=== PATIENT | female | born 1975 | race Caucasian/White ===

== ENCOUNTER 2020-03-15 17:40 | Inpatient (IN) | payer BC, MEDICAID ==
[~2020-03-15] VITALS: Ht 180.3 cm; Wt 118.2 kg
[~2020-03-15 17:40] MED LIST: AMOX-580 PO; BACL10TA PO; HYDR-4383 PO; IBUP-1986 PO; LORA1TAB PO; TRAM50TA2 PO
[2020-03-15] MEDS ORDERED: ondansetron/PF 4mg/2ml inj IV ONE (17:55)
[2020-03-15] MEDS ORDERED: normal saline 1000ML IV soln IVB ONE (17:55)
[2020-03-15] MEDS ORDERED: ketorolac trometh. 30mg/ml inj. IV ONE (18:15)
[2020-03-15 18:39] LABS: BASOPHILS # (AUTO) 0.1 X10'3 (0-0.2); EOSINOPHILS % (AUTO) 0.3 % (0-6); HEMOGLOBIN 14.5 g/dl (12.0-16.0); MEAN CORPUSCULAR HEMOGLOBIN 33.3 PG (27.0-31.0); MONOCYTES # (AUTO) 1.6 X10'3 (0-0.9)
[2020-03-15 18:41] LABS: BASOPHILS % (AUTO) 0.6 % (0-1); HEMATOCRIT 42.6 % (35.0-45.0); LYMPHOCYTES # (AUTO) 2.1 X10'3 (1.1-4.8); LYMPHOCYTES % (AUTO) 12.3 % (21-51); MEAN CORPUSCULAR HGB CONC 34.1 g/dL (33.0-36.5); MEAN CORPUSCULAR VOLUME 97.7 FL (78-98); MEAN PLATELET VOLUME 9.4 FL (7.4-10.4); NEUTROPHILS # (AUTO) 13.5 X10'3 (1.8-7.7); NEUTROPHILS % (AUTO) 77.8 % (42-75); PLATELET COUNT 186 X10'3 (140-440); RED BLOOD COUNT 4.36 X10'6 (4.20-5.60); RED CELL DISTRIBUTION WIDTH 13.5 % (11.5-14.5); WHITE BLOOD COUNT 17.4 X10'3 (4.5-11.0)
[2020-03-15] MEDS: morphine 4 MG/ML inj SYRINge IV PRN (18:47)
[2020-03-15 18:51] LABS: ALANINE AMINOTRANSFERASE 57 U/L (12-78); ALBUMIN 3.9 G/DL (3.4-5.0); ALBUMIN/GLOBULIN RATIO 1.1 (1.1-1.5); ALKALINE PHOSPHATASE 88 IU/L (46-116); ANION GAP 11 (8-16); ASPARTATE AMINO TRANSFERASE 27 U/L (10-37); BILIRUBIN,TOTAL 1.1 MG/DL (0.1-1.0); BLOOD UREA NITROGEN 9 MG/DL (7-18); CALCIUM 8.8 MG/DL (8.5-10.1); CHLORIDE 108 MMOL/L (99-107); GLUCOSE 94 MG/DL (70-104); POTASSIUM 3.4 MMOL/L (3.5-5.1); SODIUM 143 MMOL/L (135-145); TOTAL PROTEIN 7.4 G/DL (6.4-8.2); eGFR 68 ML/MIN
[2020-03-15] MEDS ORDERED: ALPR1TAB7 PO (19:26)
[2020-03-15] MEDS ORDERED: BUSP10TA3 PO (19:26)
[2020-03-15] MEDS ORDERED: ALPRAZolam 0.5mg tablet PO ONE (19:35)
--- NOTE | 2020-03-15 19:42 | NUR ---
PT DESATTING TO 86% WHEN SLEEPING. PT STATES SHE WEARS A CPAP AT HOME AT NIGHT. PT PUT ON 2 L NC. 02 INCREASED TO 96%
[2020-03-15] MEDS ORDERED: ringers solution, lacted 1,000 ML IV SCH ×2 (20:46→23:57)
[2020-03-15] MEDS ORDERED: fentaNYL/PF 50MCG/1 ML 2ML syringe IV PRN ×2 (20:50)
[2020-03-15] MEDS ORDERED: hydrALAZINE 20mg/ml inj. IV PRN (20:50)
[2020-03-15] MEDS ORDERED: ondansetron/PF 4mg/2ml inj IV PRN ×2 (20:50→21:30)
[2020-03-15] MEDS ORDERED: morphine 2 MG/ML inj. syringe IV PRN (20:50)
[2020-03-15] MEDS ORDERED: labetalol 20mg/4ml (5mg/ml) syringe IV PRN (20:50)
[2020-03-15] MEDS ORDERED: morphine 4 MG/ML inj SYRINge IV PRN (20:50)
[2020-03-15] MEDS: normal saline 1000ml 1,000 ML IV SCH (21:10)
[2020-03-15] MEDS ORDERED: fentaNYL/PF 50MCG/1 ML 2ML syringe ONE ×2 (21:25→23:48)
[2020-03-15] MEDS ORDERED: midazolam 2 mg/2 ml injection ONE (21:25)
[2020-03-15] MEDS ORDERED: BUPIVAcaine/PF 2.5 mg/ml (0.25%) 30ml vial ONE (21:25)
[2020-03-15] MEDS ORDERED: dexamethasone sod phosphate 4mg/ml inj. ONE (21:26)
[2020-03-15] MEDS ORDERED: LIDOcaine 2% (20mg/ml) 5ml vial ONE (21:26)
[2020-03-15] MEDS ORDERED: propofol inj 20 ML IV ONE ×2 (21:26→22:12)
[2020-03-15] MEDS ORDERED: neostigmine methylsulfate 1 MG/ML 10ml vial ONE (21:26)
[2020-03-15] MEDS ORDERED: rocuronium 10mg/ml inj IV ONE ×2 (21:26→22:26)
[2020-03-15] MEDS ORDERED: ondansetron/PF 4mg/2ml inj ONE (21:26)
[2020-03-15] MEDS ORDERED: glycopyrrolate 0.2mg/ml inj ONE (21:26)
[2020-03-15] MEDS ORDERED: magnesium 4gm in 100ml NS 100 ML IV PRN (21:30)
[2020-03-15] MEDS ORDERED: HYDROmorphone inj. 0.5 MG/0.5 ML DISP.SYRIN IV PRN (21:30)
[2020-03-15] MEDS ORDERED: ipratropium/albuterol 3ml nebule NEB PRN (21:30)
[2020-03-15] MEDS ORDERED: magnesium Cl slow-release 64mg tablet PO PRN (21:30)
[2020-03-15] MEDS ORDERED: HYDROmorphone 1 mg/ml syringe IV PRN (21:30)
[2020-03-15] MEDS ORDERED: potassium CL 10mEq/100ml bag 100 ML IV PRN ×2 (21:30)
[2020-03-15] MEDS ORDERED: acetaminophen 325mg tablet PO PRN (21:30)
[2020-03-15] MEDS ORDERED: potassium Cl 20 mEq SR tablet PO PRN ×2 (21:30)
[2020-03-15] MEDS ORDERED: magnesium 2GM in 50ml NS 50 ML IV PRN (21:30)
--- NOTE | 2020-03-15 21:31 | NUR ---
Pt picked up by OR tech and transported to OR. Report was given to OR nurse over the phone.
[2020-03-15] MEDS ORDERED: sevoflurane 250ml liquid IH ONE (21:41)
[2020-03-15] MEDS ORDERED: ceFOXitin 2 GM ADDVANTGE BAG 100 ML IV ONE (21:48)
[2020-03-15] MEDS ORDERED: clindamycin phosphate 150mg/ml inj. ONE (22:39)
[2020-03-15] MEDS ORDERED: gentamicin 40 MG/1 ML inj ONE (22:39)
[2020-03-15] MEDS: potassium CL 20mEq in D5-1/2NS 1,000 ML IV SCH (23:41)
[2020-03-15 23:45] VITALS: BP 166/100
--- NOTE | 2020-03-15 23:45 | NUR ---
Received from OR via BED , accompanied by Anesthesiologist DR BILLS and report given by Anesthesiolgist. PATIENT WAKING UP, C/O PAIN SEE EMAR, V/S WNL, NEUROVASCULAR CHECKS INTACT, 20G PIV RUE AND 22G LUE, SCD ON, 2 DRESSING TO ABDOMEN CDI WITH JENNIFER APPROX 30CC IN DRAIN. F/C DRAINING CLEAR YELLOW URINE.
[2020-03-15 23:46] VITALS: BP 107/65
[2020-03-15 23:55] VITALS: BP 126/69
[2020-03-15] MEDS: ketorolac trometh. 30mg/ml inj. IV PRN (23:58)
[2020-03-16] VITALS (19 sets, daily range): BP systolic 92–144; BP diastolic 48–90
[2020-03-16] MEDS ORDERED: morphine 2 MG/ML inj. syringe IV PRN
[2020-03-16] MEDS ORDERED: piperacillin/tazo 4.5gm/100ml 100 ML IV SCH
[2020-03-16] MEDS ORDERED: ondansetron/PF 4mg/2ml inj IV PRN
[2020-03-16] MEDS ORDERED: hydrALAZINE 20mg/ml inj. IV PRN
[2020-03-16] MEDS ORDERED: fentaNYL/PF 50MCG/1 ML 2ML syringe IV PRN ×2
[2020-03-16] MEDS ORDERED: morphine 4 MG/ML inj SYRINge IV PRN
[2020-03-16] MEDS ORDERED: labetalol 20mg/4ml (5mg/ml) syringe IV PRN
[2020-03-16] MEDS: morphine 4 MG/ML inj SYRINge IV PRN (00:16)
[2020-03-16] MEDS ORDERED: HYDROmorphone/NS 1 mg/ml CADD 50 ML IV SCH (00:20)
[2020-03-16] MEDS ORDERED: naloxone 0.4 mg/ml inj IV PRN (00:25)
[2020-03-16] MEDS ORDERED: CADD PCA waste documentation MC SCH (00:25)
--- NOTE | 2020-03-16 00:33 | NUR ---
PATIENT VERY PAINFUL, SUPERVISOR OF RESEARCH ORDERED PER DR CASTELLANO. AWAITING PHARMACY TO DELIVER THIS. SEE EMAR FOR MEDS GIVEN.
[2020-03-16] MEDS ORDERED: HYDROmorphone 1 mg/ml syringe ONE (00:38)
--- NOTE | 2020-03-16 00:55 | NUR ---
PATIENT OX4, C/O PAIN BUT STATES IT IS GETTING BETTER, DIRECTOR TELEVISION NEWS BOLUS GIVEN, V/S WNL, NEUROVASCULAR CHECKS INTACT, 20G PIV RUE AND 22G LUE, SCD ON, 2 DRESSING TO ABDOMEN CDI WITH JENNIFER APPROX 30CC IN DRAIN. F/C DRAINING CLEAR YELLOW URINE. PATIENT TAKEN TO 341A WITH ALL BELONGINGS AND HOOKED UP TO MONITORS IN ROOM AND REPORT GIVEN TO RN WHO HAS TAKEN OVER PATIENT CARE.
[2020-03-16] MEDS: HYDROmorphone/NS 1 mg/ml CADD 50 ML IV SCH ×12 (00:59→23:00)
--- NOTE | 2020-03-16 01:00 | NUR ---
Pt arrived to floor with fruit harvester and RT. RN states fentanyl was given and believed pt was either having reaction from medication or has high anxiety. Pt appears to be in intense pain. CADD pump was set up with fruit harvester. VSS, pain 08/08. Emptied 50 from JENNIFER, two dressings to abd CDI. Skin check completed. Pt on Bi-pap; deferred nasal swab until breathing rate controlled. 2 RN skin check preformed.
--- NOTE | 2020-03-16 01:58 | NUR ---
1 set of cultures and lactisepsis sent to lab.
--- NOTE | 2020-03-16 02:45 | NUR ---
Patient appears to be resting comfortably. RR does increase substantially when woke. When resting with eyes closed, respirations normalize to 18. Patient is using CADD pump effectively. Emptied another 70mL from JENNIFER. Dressings remain CDI.
[2020-03-16] MEDS: normal saline 1000ml 1,000 ML IV SCH ×4 (03:50→20:30)
[2020-03-16 06:25] LABS: BASOPHILS % (AUTO) 0.3 % (0-1); EOSINOPHILS % (AUTO) 0 % (0-6); HEMATOCRIT 39.1 % (35.0-45.0); HEMOGLOBIN 13.3 g/dl (12.0-16.0); LYMPHOCYTES # (AUTO) 0.8 X10'3 (1.1-4.8); LYMPHOCYTES % (AUTO) 4.2 % (21-51); MEAN CORPUSCULAR HEMOGLOBIN 33.2 PG (27.0-31.0); MEAN CORPUSCULAR HGB CONC 33.9 g/dL (33.0-36.5); MEAN PLATELET VOLUME 9.2 FL (7.4-10.4); MONOCYTES # (AUTO) 1.8 X10'3 (0-0.9); MONOCYTES % (AUTO) 9.7 % (2-12); NEUTROPHILS # (AUTO) 16.2 X10'3 (1.8-7.7); NEUTROPHILS % (AUTO) 85.8 % (42-75); PLATELET COUNT 180 X10'3 (140-440); RED BLOOD COUNT 3.99 X10'6 (4.20-5.60); RED CELL DISTRIBUTION WIDTH 13.8 % (11.5-14.5); WHITE BLOOD COUNT 18.9 X10'3 (4.5-11.0)
--- NOTE | 2020-03-16 06:27 | NUR ---
Problems reprioritized. Patient report given, questions answered & plan of care reviewed with ARNOL Rae.
--- NOTE | 2020-03-16 06:35 | NUR ---
Patient in room [facility]. I have received report from Marie Connolly RN and had the opportunity to ask questions and assume patient care.
[2020-03-16 06:41] LABS: ALANINE AMINOTRANSFERASE 57 U/L (12-78); ALBUMIN 3.2 G/DL (3.4-5.0); ALKALINE PHOSPHATASE 72 IU/L (46-116); ANION GAP 8 (8-16); ASPARTATE AMINO TRANSFERASE 28 U/L (10-37); BILIRUBIN,TOTAL 1.5 MG/DL (0.1-1.0); BLOOD UREA NITROGEN 8 MG/DL (7-18); BUN/CREATININE RATIO 8.2 (6.6-38.0); CALCIUM 8.2 MG/DL (8.5-10.1); CHLORIDE 108 MMOL/L (99-107); CREATININE 0.98 MG/DL (0.40-0.90); GLUCOSE 145 MG/DL (70-104); MAGNESIUM 1.8 MG/DL (1.5-2.4); POTASSIUM 3.9 MMOL/L (3.5-5.1); SODIUM 142 MMOL/L (135-145); TOTAL CARBON DIOXIDE 25.9 MMOL/L (24-32); TOTAL PROTEIN 6.5 G/DL (6.4-8.2); eGFR 61 ML/MIN
[2020-03-16] MEDS: piperacillin/tazo 3.375gm/50ml 50 ML IV SCH ×2 (07:17→16:24)
[2020-03-16] MEDS: busPIRone 5mg tablet PO SCH ×2 (07:17→20:51)
[2020-03-16] MEDS: enoxaparin 40mg/0.4ml syringe SQ SCH (07:17)
[2020-03-16] MEDS: sennosides/docusate sodium tablet PO SCH ×2 (07:18→20:52)
[2020-03-16] MEDS: docusate sod 100mg capsule PO SCH ×2 (07:18→20:51)
[2020-03-16] MEDS: ALPRAZolam 0.5mg tablet PO SCH ×2 (07:18→20:53)
[2020-03-16] MEDS: baclofen 10mg tablet PO PRN (07:25)
[2020-03-16] MEDS: potassium CL 20mEq in D5-1/2NS 1,000 ML IV SCH (07:51)
[2020-03-16] MEDS: K and/or MAG REPLACEMENT MC SCH ×2 (08:00→20:00)
[2020-03-16] MEDS: ondansetron/PF 4mg/2ml inj IV PRN (09:00)
[2020-03-16] MEDS: ketorolac trometh. 30mg/ml inj. IV PRN ×2 (09:01→17:25)
[2020-03-16 10:43] LABS: CLARITY,URINE CLOUDY (Clear); GLUCOSE, URINE NEGATIVE (Neg); KETONES,URINE NEGATIVE (Neg); LEUKOCYTE ESTERASE ,URINE NEGATIVE (Neg); OCCULT BLOOD,URINE MODERATE (Neg); PROTEIN,URINE 30 mg/dl (Neg)
[2020-03-16 10:49] LABS: UA COLLECTION TYPE OTHER
[2020-03-16 10:51] LABS: COLOR,URINE DARK YELLOW (Yellow); NITRITES, URINE NEGATIVE (Neg)
[2020-03-16 10:54] LABS: AMORPHOUS URATES 4+; BACTERIA,URINE FEW /HPF (Neg); RBC,URINE 0-2 /HPF (0-2); SQUAMOUS EPITHELIAL CELL,UR MODERATE /LPF (FEW); WBC,URINE 0-4 /HPF (0-4)
[2020-03-16 10:55] LABS: MUCUS STRANDS FEW /LPF (Neg); RENAL CELLS, URINE FEW /HPF; TRANSITIONAL EPI CELLS,URINE MODERATE /HPF
[2020-03-16 10:56] LABS: HYALINE CASTS 0-3 /LPF (NEGATIVE)
--- NOTE | 2020-03-16 16:14 | NUR ---
patient tearful from time to time, stated she is very emotional and anxious. medicated this am with xanax as scheduled. Encouraged to use Dilaudid cadd with effect. Wound site reinforced small amount of drainage distal portion of midline incision. JENNIFER drained 140mls serosang drainage. patient able to ambulate with PT 80ft. Toradol administered for abdominal pain and tenderness with effect. Will continue to monitor.
--- NOTE | 2020-03-16 18:22 | NUR ---
Problems reprioritized. Patient report given, questions answered & plan of care reviewed with Brandin AMBROSE.
--- NOTE | 2020-03-16 18:30 | NUR ---
Patient in room [facility]. I have received report from KELLY AMBROSE and had the opportunity to ask questions and assume patient care.
[2020-03-16] MEDS: lactobacillus rhamnosus 10,000 MMU CELLS/CAPSULE PO SCH (20:51)
[2020-03-17] VITALS: BP 98/51
[2020-03-17] MEDS: piperacillin/tazo 3.375gm/50ml 50 ML IV SCH ×3 (00:22→16:46)
[2020-03-17] MEDS: normal saline 1000ml 1,000 ML IV SCH ×3 (00:23→19:20)
[2020-03-17] MEDS: HYDROmorphone/NS 1 mg/ml CADD 50 ML IV SCH ×12 (01:00→23:00)
[2020-03-17] MEDS: ondansetron/PF 4mg/2ml inj IV PRN ×3 (05:09→21:18)
[2020-03-17] MEDS: ketorolac trometh. 30mg/ml inj. IV PRN ×3 (05:11→17:59)
[2020-03-17 05:40] LABS: BASOPHILS % (AUTO) 0.3 % (0-1); EOSINOPHILS % (AUTO) 0.4 % (0-6); HEMATOCRIT 33.5 % (35.0-45.0); HEMOGLOBIN 11.3 g/dl (12.0-16.0); LYMPHOCYTES # (AUTO) 1.4 X10'3 (1.1-4.8); LYMPHOCYTES % (AUTO) 11.5 % (21-51); MEAN CORPUSCULAR HEMOGLOBIN 33.2 PG (27.0-31.0); MEAN CORPUSCULAR HGB CONC 33.8 g/dL (33.0-36.5); MEAN CORPUSCULAR VOLUME 98.3 FL (78-98); MEAN PLATELET VOLUME 9.1 FL (7.4-10.4); MONOCYTES # (AUTO) 1.4 X10'3 (0-0.9); MONOCYTES % (AUTO) 11.6 % (2-12); NEUTROPHILS # (AUTO) 9.6 X10'3 (1.8-7.7); NEUTROPHILS % (AUTO) 76.2 % (42-75); PLATELET COUNT 152 X10'3 (140-440); RED BLOOD COUNT 3.41 X10'6 (4.20-5.60); RED CELL DISTRIBUTION WIDTH 13.6 % (11.5-14.5); WHITE BLOOD COUNT 12.5 X10'3 (4.5-11.0)
[2020-03-17 05:51] LABS: ALANINE AMINOTRANSFERASE 38 U/L (12-78); ALBUMIN 2.7 G/DL (3.4-5.0); ALBUMIN/GLOBULIN RATIO 0.8 (1.1-1.5); ALKALINE PHOSPHATASE 67 IU/L (46-116); ANION GAP 7 (8-16); ASPARTATE AMINO TRANSFERASE 21 U/L (10-37); BILIRUBIN,TOTAL 1.1 MG/DL (0.1-1.0); BLOOD UREA NITROGEN 9 MG/DL (7-18); BUN/CREATININE RATIO 10.1 (6.6-38.0); CALCIUM 8.1 MG/DL (8.5-10.1); CHLORIDE 107 MMOL/L (99-107); CREATININE 0.89 MG/DL (0.40-0.90); GLUCOSE 120 MG/DL (70-104); MAGNESIUM 1.9 MG/DL (1.5-2.4); POTASSIUM 3.6 MMOL/L (3.5-5.1); SODIUM 140 MMOL/L (135-145); TOTAL CARBON DIOXIDE 26.1 MMOL/L (24-32); TOTAL PROTEIN 6.2 G/DL (6.4-8.2); eGFR 69 ML/MIN
--- NOTE | 2020-03-17 06:30 | NUR ---
Problems reprioritized. Patient report given, questions answered & plan of care reviewed with BLAIRE AMBROSE.
[2020-03-17 07:00] VITALS: BP 112/69
[2020-03-17] MEDS: K and/or MAG REPLACEMENT MC SCH ×2 (08:00→20:00)
[2020-03-17] MEDS: busPIRone 5mg tablet PO SCH ×2 (08:11→20:15)
[2020-03-17] MEDS: docusate sod 100mg capsule PO SCH ×2 (08:12→20:15)
[2020-03-17] MEDS: sennosides/docusate sodium tablet PO SCH ×2 (08:13→20:16)
[2020-03-17] MEDS: lactobacillus rhamnosus 10,000 MMU CELLS/CAPSULE PO SCH ×2 (08:13→20:15)
[2020-03-17] MEDS: ALPRAZolam 0.5mg tablet PO SCH ×2 (08:13→20:15)
[2020-03-17] MEDS: enoxaparin 40mg/0.4ml syringe SQ SCH (08:14)
[2020-03-17] MEDS: methylnaltrexone br 12mg/0.6ml inj***SubQ only SQ SCH (11:56)
[2020-03-17] MEDS ORDERED: traMADol 50MG tablet PO ONE (12:05)
[2020-03-17] MEDS: baclofen 10mg tablet PO PRN (17:49)
--- NOTE | 2020-03-17 18:22 | NUR ---
Problems reprioritized. Patient report given, questions answered & plan of care reviewed with Brandin AMBROSE.
--- NOTE | 2020-03-17 18:30 | NUR ---
Patient in room [facility]. I have received report from BLAIRE AMBROSE and had the opportunity to ask questions and assume patient care.
[2020-03-17 20:00] VITALS: BP 118/69
[2020-03-18] VITALS: BP 124/61
[2020-03-18] MEDS: piperacillin/tazo 3.375gm/50ml 50 ML IV SCH ×3 (00:18→15:47)
[2020-03-18] MEDS: HYDROmorphone/NS 1 mg/ml CADD 50 ML IV SCH ×11 (01:00→23:00)
[2020-03-18] MEDS: ketorolac trometh. 30mg/ml inj. IV PRN ×2 (01:26→15:47)
[2020-03-18] MEDS: baclofen 10mg tablet PO PRN ×2 (01:38→10:27)
[2020-03-18] MEDS: normal saline 1000ml 1,000 ML IV SCH ×3 (04:19→21:07)
--- NOTE | 2020-03-18 06:30 | NUR ---
Problems reprioritized. Patient report given, questions answered & plan of care reviewed with BART AMBROSE.
[2020-03-18 06:50] LABS: ALANINE AMINOTRANSFERASE 32 U/L (12-78); ALBUMIN 2.3 G/DL (3.4-5.0); ALBUMIN/GLOBULIN RATIO 0.7 (1.1-1.5); ALKALINE PHOSPHATASE 70 IU/L (46-116); ANION GAP 6 (8-16); ASPARTATE AMINO TRANSFERASE 26 U/L (10-37); BILIRUBIN,TOTAL 0.7 MG/DL (0.1-1.0); BLOOD UREA NITROGEN 7 MG/DL (7-18); BUN/CREATININE RATIO 9.5 (6.6-38.0); CALCIUM 8.2 MG/DL (8.5-10.1); CHLORIDE 108 MMOL/L (99-107); CREATININE 0.74 MG/DL (0.40-0.90); GLUCOSE 99 MG/DL (70-104); MAGNESIUM 2.1 MG/DL (1.5-2.4); POTASSIUM 3.8 MMOL/L (3.5-5.1); SODIUM 142 MMOL/L (135-145); TOTAL CARBON DIOXIDE 28.4 MMOL/L (24-32); TOTAL PROTEIN 5.7 G/DL (6.4-8.2); eGFR 85 ML/MIN
[2020-03-18 07:03] LABS: BASOPHILS % (AUTO) 0.4 % (0-1); EOSINOPHILS # (AUTO) 0.1 X10'3 (0-0.9); HEMATOCRIT 30.6 % (35.0-45.0); HEMOGLOBIN 10.5 g/dl (12.0-16.0); LYMPHOCYTES # (AUTO) 1.3 X10'3 (1.1-4.8); MEAN CORPUSCULAR HEMOGLOBIN 33.6 PG (27.0-31.0); MEAN CORPUSCULAR HGB CONC 34.2 g/dL (33.0-36.5); MEAN PLATELET VOLUME 9.3 FL (7.4-10.4); MONOCYTES # (AUTO) 0.7 X10'3 (0-0.9); MONOCYTES % (AUTO) 8.2 % (2-12); NEUTROPHILS # (AUTO) 6.3 X10'3 (1.8-7.7); NEUTROPHILS % (AUTO) 74.4 % (42-75); PLATELET COUNT 160 X10'3 (140-440); RED BLOOD COUNT 3.12 X10'6 (4.20-5.60); RED CELL DISTRIBUTION WIDTH 13.4 % (11.5-14.5); WHITE BLOOD COUNT 8.4 X10'3 (4.5-11.0)
[2020-03-18 08:00] VITALS: BP 102/82
[2020-03-18] MEDS: K and/or MAG REPLACEMENT MC SCH ×2 (08:00→20:00)
[2020-03-18] MEDS: docusate sod 100mg capsule PO SCH ×2 (10:27→19:59)
[2020-03-18] MEDS: busPIRone 5mg tablet PO SCH ×2 (10:27→20:00)
[2020-03-18] MEDS: sennosides/docusate sodium tablet PO SCH ×2 (10:27→19:59)
[2020-03-18] MEDS: ALPRAZolam 0.5mg tablet PO SCH ×2 (10:27→19:58)
[2020-03-18] MEDS: lactobacillus rhamnosus 10,000 MMU CELLS/CAPSULE PO SCH ×2 (10:27→20:00)
[2020-03-18] MEDS: enoxaparin 40mg/0.4ml syringe SQ SCH (10:28)
[2020-03-18 11:38] VITALS: BP 125/74
--- NOTE | 2020-03-18 18:30 | NUR ---
Patient in room [facility]. I have received report from BART AMBROSE and had the opportunity to ask questions and assume patient care.
[2020-03-18 20:00] VITALS: BP 125/55
[2020-03-19] VITALS: BP 133/80
[2020-03-19] MEDS: piperacillin/tazo 3.375gm/50ml 50 ML IV SCH ×3 (00:27→17:11)
[2020-03-19] MEDS: HYDROmorphone/NS 1 mg/ml CADD 50 ML IV SCH ×9 (01:00→17:00)
[2020-03-19] MEDS: normal saline 1000ml 1,000 ML IV SCH ×3 (05:35→20:30)
[2020-03-19] MEDS: ketorolac trometh. 30mg/ml inj. IV PRN ×2 (05:36→18:40)
[2020-03-19 06:13] LABS: BASOPHILS # (AUTO) 0.1 X10'3 (0-0.2); BASOPHILS % (AUTO) 0.7 % (0-1); EOSINOPHILS # (AUTO) 0.1 X10'3 (0-0.9); EOSINOPHILS % (AUTO) 1.9 % (0-6); HEMATOCRIT 31.5 % (35.0-45.0); LYMPHOCYTES # (AUTO) 1.3 X10'3 (1.1-4.8); LYMPHOCYTES % (AUTO) 17.6 % (21-51); MEAN CORPUSCULAR HGB CONC 34.9 g/dL (33.0-36.5); MEAN CORPUSCULAR VOLUME 97.4 FL (78-98); MEAN PLATELET VOLUME 8.9 FL (7.4-10.4); MONOCYTES # (AUTO) 0.7 X10'3 (0-0.9); MONOCYTES % (AUTO) 9.7 % (2-12); NEUTROPHILS # (AUTO) 5.1 X10'3 (1.8-7.7); NEUTROPHILS % (AUTO) 70.1 % (42-75); PLATELET COUNT 190 X10'3 (140-440); RED BLOOD COUNT 3.24 X10'6 (4.20-5.60); RED CELL DISTRIBUTION WIDTH 12.9 % (11.5-14.5); WHITE BLOOD COUNT 7.3 X10'3 (4.5-11.0)
[2020-03-19 06:30] LABS: ALANINE AMINOTRANSFERASE 34 U/L (12-78); ALBUMIN 2.5 G/DL (3.4-5.0); ALBUMIN/GLOBULIN RATIO 0.7 (1.1-1.5); ALKALINE PHOSPHATASE 77 IU/L (46-116); ANION GAP 5 (8-16); ASPARTATE AMINO TRANSFERASE 23 U/L (10-37); BILIRUBIN,TOTAL 0.8 MG/DL (0.1-1.0); BLOOD UREA NITROGEN 7 MG/DL (7-18); BUN/CREATININE RATIO 10.1 (6.6-38.0); CALCIUM 8.2 MG/DL (8.5-10.1); CHLORIDE 107 MMOL/L (99-107); CREATININE 0.69 MG/DL (0.40-0.90); GLUCOSE 84 MG/DL (70-104); POTASSIUM 3.8 MMOL/L (3.5-5.1); SODIUM 141 MMOL/L (135-145); TOTAL CARBON DIOXIDE 28.6 MMOL/L (24-32); eGFR > 90 ML/MIN
--- NOTE | 2020-03-19 06:30 | NUR ---
Problems reprioritized. Patient report given, questions answered & plan of care reviewed with BART AMBROSE.
--- NOTE | 2020-03-19 06:30 | NUR ---
Patient in room [facility]. I have received report from WILL SOLIS RN and had the opportunity to ask questions and assume patient care.
[2020-03-19 07:00] VITALS: BP 126/69
[2020-03-19] MEDS: K and/or MAG REPLACEMENT MC SCH ×2 (08:00→19:28)
[2020-03-19] MEDS: methylnaltrexone br 12mg/0.6ml inj***SubQ only SQ SCH (09:12)
[2020-03-19] MEDS: enoxaparin 40mg/0.4ml syringe SQ SCH (09:12)
[2020-03-19] MEDS: sennosides/docusate sodium tablet PO SCH ×2 (09:12→19:24)
[2020-03-19] MEDS: lactobacillus rhamnosus 10,000 MMU CELLS/CAPSULE PO SCH ×2 (09:13→19:24)
[2020-03-19] MEDS: ALPRAZolam 0.5mg tablet PO SCH ×2 (09:13→19:24)
[2020-03-19] MEDS: busPIRone 5mg tablet PO SCH ×2 (09:13→19:24)
[2020-03-19] MEDS: docusate sod 100mg capsule PO SCH ×2 (09:15→19:24)
[2020-03-19 11:00] VITALS: BP 120/56
[2020-03-19] MEDS ORDERED: NUT.TX.IMPAIRED DIGEST FXN (Ensure Clear) 237 ML PO SCH (13:00)
[2020-03-19] MEDS ORDERED: HYDROcodone/acetaminophen 5mg/325mg tablet PO PRN (18:10)
[2020-03-19] MEDS ORDERED: HYDROcodone/acetaminophen 10/325mg tab PO PRN (18:10)
--- NOTE | 2020-03-19 18:10 | NUR ---
Received report from primary care nurse Emiliana AMBROSE. Assumed patient care Patient is awake on 2L NC. In no apparent distress. Call light and items of frequent use within reach. Will continue to monitor for changes. Addendum: 03/19/20 at 2143 by Maryellen Eid RN Received report from primary care nurse Emiliana AMBROSE. Assumed patient care Patient is awake on room air. In no apparent distress. Call light and items of frequent use within reach. Will continue to monitor for changes.
[2020-03-19 19:00] VITALS: BP 129/55
--- NOTE | 2020-03-19 19:03 | NUR ---
Problems reprioritized. Patient report given, questions answered & plan of care reviewed with ARNOL AUGUSTINE.
[2020-03-19] MEDS ORDERED: CADD PCA waste documentation MC SCH (19:05)
[2020-03-19] MEDS: ondansetron/PF 4mg/2ml inj IV PRN (22:21)
[2020-03-20] VITALS: BP 133/78
[2020-03-20] MEDS: piperacillin/tazo 3.375gm/50ml 50 ML IV SCH ×2 (00:30→07:32)
--- NOTE | 2020-03-20 06:20 | NUR ---
Patient in room [facility]. I have received report from ARNOL Bojorquez and had the opportunity to ask questions and assume patient care.
[2020-03-20 06:38] LABS: ALANINE AMINOTRANSFERASE 34 U/L (12-78); ALBUMIN 2.6 G/DL (3.4-5.0); ALBUMIN/GLOBULIN RATIO 0.7 (1.1-1.5); ALKALINE PHOSPHATASE 81 IU/L (46-116); ANION GAP 10 (8-16); ASPARTATE AMINO TRANSFERASE 27 U/L (10-37); BILIRUBIN,TOTAL 0.7 MG/DL (0.1-1.0); BLOOD UREA NITROGEN 6 MG/DL (7-18); CALCIUM 8.3 MG/DL (8.5-10.1); CHLORIDE 105 MMOL/L (99-107); CREATININE 0.75 MG/DL (0.40-0.90); GLUCOSE 81 MG/DL (70-104); POTASSIUM 3.1 MMOL/L (3.5-5.1); SODIUM 143 MMOL/L (135-145); TOTAL CARBON DIOXIDE 28.1 MMOL/L (24-32); TOTAL PROTEIN 6.6 G/DL (6.4-8.2); eGFR 84 ML/MIN
[2020-03-20 06:39] LABS: BASOPHILS # (AUTO) 0.1 X10'3 (0-0.2); BASOPHILS % (AUTO) 0.7 % (0-1); EOSINOPHILS # (AUTO) 0.2 X10'3 (0-0.9); EOSINOPHILS % (AUTO) 2.3 % (0-6); HEMATOCRIT 34.2 % (35.0-45.0); HEMOGLOBIN 11.9 g/dl (12.0-16.0); LYMPHOCYTES # (AUTO) 1.8 X10'3 (1.1-4.8); LYMPHOCYTES % (AUTO) 21.2 % (21-51); MEAN CORPUSCULAR HEMOGLOBIN 33.4 PG (27.0-31.0); MEAN CORPUSCULAR HGB CONC 34.8 g/dL (33.0-36.5); MEAN CORPUSCULAR VOLUME 95.9 FL (78-98); MEAN PLATELET VOLUME 8.7 FL (7.4-10.4); MONOCYTES # (AUTO) 0.9 X10'3 (0-0.9); MONOCYTES % (AUTO) 10.6 % (2-12); NEUTROPHILS # (AUTO) 5.4 X10'3 (1.8-7.7); NEUTROPHILS % (AUTO) 65.2 % (42-75); PLATELET COUNT 233 X10'3 (140-440); RED BLOOD COUNT 3.56 X10'6 (4.20-5.60); WHITE BLOOD COUNT 8.3 X10'3 (4.5-11.0)
--- NOTE | 2020-03-20 06:39 | NUR ---
Reported off to Ilana RN. Patient is awake and alert on room air. In no apparent distress. Call light and items of frequent use within reach.
[2020-03-20] MEDS: K and/or MAG REPLACEMENT MC SCH (06:54)
[2020-03-20 07:00] VITALS: BP 155/79
[2020-03-20] MEDS ORDERED: potassium CL 10mEq/100ml bag 100 ML IV PRN (07:10)
[2020-03-20] MEDS ORDERED: magnesium Cl slow-release 64mg tablet PO PRN (07:10)
[2020-03-20] MEDS ORDERED: magnesium 4gm in 100ml NS 100 ML IV PRN (07:10)
[2020-03-20] MEDS ORDERED: potassium Cl 20 mEq SR tablet PO PRN (07:10)
[2020-03-20] MEDS ORDERED: magnesium 2GM in 50ml NS 50 ML IV PRN (07:10)
[2020-03-20] MEDS: busPIRone 5mg tablet PO SCH (07:32)
[2020-03-20] MEDS: lactobacillus rhamnosus 10,000 MMU CELLS/CAPSULE PO SCH (07:32)
[2020-03-20] MEDS: enoxaparin 40mg/0.4ml syringe SQ SCH (07:32)
[2020-03-20] MEDS: docusate sod 100mg capsule PO SCH ×2 (07:32→07:37)
[2020-03-20] MEDS: potassium Cl 20 mEq SR tablet PO PRN ×2 (07:33→11:47)
[2020-03-20] MEDS: sennosides/docusate sodium tablet PO SCH ×2 (07:33→07:37)
[2020-03-20] MEDS: ALPRAZolam 0.5mg tablet PO SCH (07:33)
[2020-03-20] MEDS: ketorolac trometh. 30mg/ml inj. IV PRN (07:34)
[2020-03-20] MEDS: baclofen 10mg tablet PO PRN (07:42)
[2020-03-20 08:33] LABS: TOTAL CELLS COUNTED 100
[2020-03-20 08:34] LABS: PLATELET ESTIMATE NORMAL; POLYCHROMASIA 1+
--- NOTE | 2020-03-20 10:56 | NUR ---
Initial: Pt admitted with acute stump appendicitis. Pt s/p open appendectomy. Pt remains on clear liquid diet at this time, documented with fluctuating PO intake of 25-50% however noted to refuse meals at times. Recommend Ensure Clear to optimize PO intake and provide some protein while on clear liquid diet. [facility] 03/20. Will continue to follow and monitor need for further nutrition intervention. Recommendations: 1) Advance to regular diet as medically indicated 2) Ensure Clear TID while on clear liquid diet, pending MD verification 3) Monitor need for additional protein/ONS adjustment with diet advancement 4) Routine bowel care 5) Scaled wt per rx Addendum: 03/20/20 at [address] Amended: Links added.
[2020-03-20 11:00] VITALS: BP 127/74
[2020-03-20] MEDS ORDERED: AMOX-580 PO (14:10)
[2020-03-20] MEDS ORDERED: POTA20TA19 PO (14:10)
--- NOTE | 2020-03-20 15:20 | NUR ---
DC inst provided to pt. IV DC'd, tip intact. All belongings sent w/pt. Pt ambulated to front lobby.
== END 2020-03-20 15:28 | disposition home or self-care (01) | DRG 336 ==
LOC: ER 17:41 → SUR 3N 21:26
PROVIDERS: ADMIT Family Medicine; ATTEND Family Medicine
PROC: 0DNW0ZZ Release Peritoneum, Open Approach (ICD-10-PCS; 2020-03-15)
PROC: 0WJG4ZZ Inspection of Peritoneal Cavity, Percutaneous Endoscopic Approach (ICD-10-PCS; 2020-03-15)
PROC: 0DTJ0ZZ Resection of Appendix, Open Approach (ICD-10-PCS; principal; 2020-03-15 21:41)
PROC: 5A09357 Assistance with Respiratory Ventilation, Less than 24 Consecutive Hours, Continuous Positive Airway Pressure (ICD-10-PCS; 2020-03-16)
PROC: 5A09357 Assistance with Respiratory Ventilation, Less than 24 Consecutive Hours, Continuous Positive Airway Pressure (ICD-10-PCS; 2020-03-17)
PROC: 5A09357 Assistance with Respiratory Ventilation, Less than 24 Consecutive Hours, Continuous Positive Airway Pressure (ICD-10-PCS; 2020-03-18)
DX: K36 Other appendicitis (principal); N17.9 Acute kidney failure, unspecified; K56.7 Ileus, unspecified; E66.9 Obesity, unspecified; G44.209 Tension-type headache, unspecified, not intractable; G47.33 Obstructive sleep apnea (adult) (pediatric); E87.6 Hypokalemia; F41.8 Other specified anxiety disorders; N18.9 Chronic kidney disease, unspecified; K66.0 Peritoneal adhesions (postprocedural) (postinfection); F17.210 Nicotine dependence, cigarettes, uncomplicated; Z85.41 Personal history of malignant neoplasm of cervix uteri; Z87.19 Personal history of other diseases of the digestive system; Z90.710 Acquired absence of both cervix and uterus; Z68.36 Body mass index [BMI] 36.0-36.9, adult; Z79.899 Other long term (current) drug therapy; Z71.6 Tobacco abuse counseling
CPT/HCPCS: 99285; Z7506; Z7508; 36415; 76937; 80053; 81001; 83605; 83735; 85025; 86885; 86900; 86901; 87040; 87081; 94660; 94760; 97110; 97116; 97162; 97530; A4215; A4314; A4618; A6402; A6407; A7000; G0378; J0694; J1100; J1170; J1580; J1650; J1885; J2001; J2212; J2250; J2270; J2405; J2543; J2704; J2710; J3010; J3480; J3490; J7030; J7120